=== PATIENT | male | born 1995 | race Hispanic/Latino ===

== ENCOUNTER 2018-01-10 05:47 | Day surgery (SDC) | payer MEDICAID ==
[~2018-01-10] VITALS: Ht 162.6 cm; Wt 97.5 kg
[2018-01-10] VITALS (8 sets, daily range): BP systolic 109–120; BP diastolic 48–69
[~2018-01-10 05:47] MED LIST: SODIUM CHLORIDE 0.9% 1000ML 1,000 ML IV ONE
[2018-01-10] MEDS ORDERED: HYDR-3830 PO (06:39)
[2018-01-10] MEDS ORDERED: LIDOCAINE HCL-MPF 2% 5ML VIAL ONE (07:04)
[2018-01-10] MEDS ORDERED: SUCCINYLCHOLINE CHLORIDE 20 MG/ML 10 ML VIAL ONE (07:13)
== END 2018-01-10 07:54 | disposition home or self-care (01) ==
LOC: ENDO 05:47 → DAH 05:47 → ENDO 07:54
PROVIDERS: ATTEND Internal Medicine Gastroenterology
DX: K21.0 Gastro-esophageal reflux disease with esophagitis (principal); K29.00 Acute gastritis without bleeding; K44.9 Diaphragmatic hernia without obstruction or gangrene; Z68.37 Body mass index [BMI] 37.0-37.9, adult; F41.9 Anxiety disorder, unspecified; Z79.899 Other long term (current) drug therapy
CPT/HCPCS: 43239; 88305; 88312; 88342; A4606; J0330; J3490; J7030

== ENCOUNTER 2018-10-07 11:24 | Emergency (ER) | payer MEDICAID ==
[~2018-10-07 11:24] MED LIST changes: +HYDR-3830 PO; -SODIUM CHLORIDE 0.9% 1000ML 1,000 ML IV ONE
== END 2018-10-07 12:26 | disposition home or self-care (01) ==
LOC: EDH 11:24
DX: S63.591A Other specified sprain of right wrist, initial encounter (principal); W22.8XXA Striking against or struck by other objects, initial encounter; Y93.89 Activity, other specified; Y92.098 Other place in other non-institutional residence as the place of occurrence of the external cause; Y99.8 Other external cause status
CPT/HCPCS: 73110

== ENCOUNTER 2019-02-23 08:06 | Day surgery (SDC) | payer MEDICAID ==
[~2019-02-23] VITALS: Ht 160 cm; Wt 93.0 kg
[~2019-02-23 08:06] MED LIST changes: +CLONAZEPAM; +ESOM40CA54 PO; -HYDR-3830 PO; +SERT50TA12 PO; +SODIUM CHLORIDE 0.9% 1000ML 1,000 ML IV ONE
[2019-02-23 09:00] VITALS: BP 119/58
[2019-02-23 10:51] VITALS: BP 121/60
[2019-02-23 10:56] VITALS: BP 122/60
[2019-02-23 11:01] VITALS: BP 128/61
[2019-02-23 11:06] VITALS: BP 126/61
--- NOTE | 2019-02-23 11:15 | NUR ---
dc pt dc home via wc, no distress noted. denied any pain or discomforts. accompanied by spouse and mom. dc intructions reinforced
== END 2019-02-23 11:15 | disposition home or self-care (01) ==
LOC: DAH 08:06 → ENDO 08:06
PROVIDERS: ATTEND Internal Medicine Gastroenterology
DX: K29.50 Unspecified chronic gastritis without bleeding (principal); K22.8 Other specified diseases of esophagus; K31.89 Other diseases of stomach and duodenum; K21.9 Gastro-esophageal reflux disease without esophagitis; K76.0 Fatty (change of) liver, not elsewhere classified; F41.9 Anxiety disorder, unspecified; R94.5 Abnormal results of liver function studies; K44.9 Diaphragmatic hernia without obstruction or gangrene; Z79.899 Other long term (current) drug therapy
CPT/HCPCS: 43239; 88305; A4606; J7030

== ENCOUNTER → 2019-03-15 | Outpatient (CLI) | payer MEDICAID ==
[~2019-03-15] MED LIST changes: -SODIUM CHLORIDE 0.9% 1000ML 1,000 ML IV ONE
== END | disposition home or self-care (01) ==
LOC: RAH 09:45
PROVIDERS: ATTEND Internal Medicine Gastroenterology
DX: R93.2 Abnormal findings on diagnostic imaging of liver and biliary tract (principal); R10.11 Right upper quadrant pain
CPT/HCPCS: 78227; A9537

== ENCOUNTER 2019-05-19 16:54 | Emergency (ER) | payer MEDICAID ==
[2019-05-19] MEDS ORDERED: IBUPROFEN 600 MG TABLET ONE (17:14)
== END 2019-05-19 17:24 | disposition home or self-care (01) ==
LOC: EDH 16:54
DX: S63.91XA Sprain of unspecified part of right wrist and hand, initial encounter (principal); W22.8XXA Striking against or struck by other objects, initial encounter; Y93.89 Activity, other specified; Y92.098 Other place in other non-institutional residence as the place of occurrence of the external cause; Y99.8 Other external cause status
CPT/HCPCS: 73130

== ENCOUNTER 2019-05-31 06:19 | Day surgery (SDC) | payer MEDICAID ==
[2019-05-29 10:21] VITALS: BP 121/62
[2019-05-29 10:28] LABS: BASOPHILS % (AUTO) 0.5 % (0.0-5.0); EOSINOPHILS % (AUTO) 0.6 % (0.0-8.0); LYMPHOCYTES % (AUTO) 24.1 % (21.0-51.0); MEAN CORPUSCULAR HEMOGLOBIN 30.1 pg (27.0-33.0); MEAN CORPUSCULAR HGB CONC 34.1 g/dL (32.0-36.0); MEAN CORPUSCULAR VOLUME 88.4 fL (80-100); MONOCYTES % (AUTO) 9.2 % (3.0-13.0); PLATELET COUNT (AUTO) 274 K/uL (130-400); RED BLOOD CELL COUNT(AUTO) 4.98 MIL/uL (4.50-6.20); RED CELL DISTRIBUTION WIDTH 12.6 % (11.0-15.5); WHITE BLOOD COUNT (AUTO) 8.8 K/uL (4.8-10.8)
[2019-05-29 10:42] LABS: ALBUMIN 3.9 g/dL (3.5-5.0); BILIRUBIN,DIRECT 0.1 mg/dL (0.0-0.3); BILIRUBIN,TOTAL 0.4 mg/dL (0.2-1.0); TOTAL PROTEIN, SERUM 8.1 g/dL (6.0-8.3)
[~2019-05-31] VITALS: Ht 165.1 cm; Wt 98.6 kg
[2019-05-31] VITALS (15 sets, daily range): BP systolic 109–157; BP diastolic 60–76
[2019-05-31] MEDS ORDERED: CLON0.5T4 PO (07:15)
[2019-05-31] MEDS: LACTATED RINGERS 1000ML 1,000 ML IV SCH ×2 (07:18→08:01)
[2019-05-31] MEDS ORDERED: LIDOCAINE PF 2% 5ML ABBOJECT ONE (08:27)
[2019-05-31] MEDS ORDERED: MIDAZOLAM HCL 1 MG/ML 2ML VIAL ONE (08:28)
[2019-05-31] MEDS ORDERED: PROPOFOL 10 MG/ML 20ML VIAL IV ONE ×2 (08:28→09:30)
[2019-05-31] MEDS ORDERED: ROCURONIUM 10MG/1ML SYR 10 MG/ML ML ONE (08:28)
[2019-05-31] MEDS ORDERED: ONDANSETRON HCL 4 MG/2 ML VIAL ONE ×2 (08:28→10:44)
[2019-05-31] MEDS ORDERED: FENTANYL CITRATE PF 50 MCG/1 ML 2ML VIAL ONE ×3 (08:29→10:30)
[2019-05-31] MEDS ORDERED: HEPARIN SODIUM 1000UNIT/ML 10ML VIAL ONE (08:52)
[2019-05-31] MEDS ORDERED: EPHEDRINE SULFATE 50 MG/ML AMPULE ONE (09:21)
[2019-05-31] MEDS ORDERED: GLYCOPYRROLATE 1 MG/5 ML SYRINGE ONE (09:46)
[2019-05-31] MEDS ORDERED: NEOSTIGMINE 5MG/5ML SYR IV ONE (09:47)
[2019-05-31] MEDS ORDERED: MEPERIDINE-PF 25 MG/ML SYG ONE (10:18)
[2019-05-31] MEDS ORDERED: KETOROLAC TROMETHAMINE 30MG/ML ONE (10:18)
[2019-05-31] MEDS ORDERED: RACEPINEPHRINE HCL 2.25% 0.5 ML NEB SOLN ONE (10:24)
[2019-05-31] MEDS ORDERED: METOCLOPRAMIDE 10 MG/2 ML VIAL ONE (10:44)
== END 2019-05-31 12:12 | disposition home or self-care (01) ==
LOC: DAH 06:19
PROVIDERS: ATTEND Surgery
DX: K82.8 Other specified diseases of gallbladder (principal); K81.1 Chronic cholecystitis; F41.9 Anxiety disorder, unspecified; K21.9 Gastro-esophageal reflux disease without esophagitis; Z87.891 Personal history of nicotine dependence; Z79.899 Other long term (current) drug therapy
CPT/HCPCS: 36415; 47562; 80076; 85025; 88304; 94640; A4215; A4221; A4222; A4223; A4450; A4663; A6260; C1769 ×4; J1644; J1885; J2001; J2175; J2250; J2405 ×2; J2704 ×2; J2710; J2765; J3010 ×3; J3490 ×2; J7030; J7120 ×2

== ENCOUNTER 2021-11-09 03:19 | Emergency (ER) | payer MEDICAID ==
[~2021-11-09] VITALS: Ht 160 cm; Wt 89.8 kg
[~2021-11-09 03:19] MED LIST changes: +CLON0.5T4 PO; -ESOM40CA54 PO; +SERT-439 PO; -SERT50TA12 PO
[2021-11-09 03:49] LABS: BASOPHILS % (AUTO) 0.5 % (0.0-5.0); EOSINOPHILS % (AUTO) 1.2 % (0.0-8.0); HEMATOCRIT 43.5 % (42-54); LYMPHOCYTES % (AUTO) 24.5 % (21.0-51.0); MEAN CORPUSCULAR HEMOGLOBIN 30.6 pg (27.0-33.0); MEAN CORPUSCULAR HGB CONC 35.6 g/dL (32.0-36.0); MONOCYTES % (AUTO) 7.2 % (3.0-13.0); NEUTROPHILS % (AUTO) 66.2 % (40.0-77.0); PLATELET COUNT (AUTO) 255 K/uL (130-400); RED BLOOD CELL COUNT(AUTO) 5.06 MIL/uL (4.50-6.20); RED CELL DISTRIBUTION WIDTH 12.4 % (11.0-15.5); WHITE BLOOD COUNT (AUTO) 12.1 K/uL (4.8-10.8)
[2021-11-09 04:01] LABS: CREATININE 0.9 mg/dL (0.5-1.5); POTASSIUM 3.8 mmol/L (3.5-5.1)
[2021-11-09 04:05] LABS: BILIRUBIN,TOTAL 0.4 mg/dL (0.2-1.0); TOTAL PROTEIN, SERUM 7.5 g/dL (6.0-8.3)
[2021-11-09] MEDS ORDERED: KETOROLAC 15MG/ML VIAL (15MG/ML) IV ONE (05:00)
[2021-11-09] MEDS ORDERED: IBUP-2070 PO (05:01)
[2021-11-09 05:03] VITALS: BP 115/80
== END 2021-11-09 05:19 | disposition home or self-care (01) ==
LOC: EDH 03:19
DX: R07.89 Other chest pain (principal); R09.1 Pleurisy; F14.90 Cocaine use, unspecified, uncomplicated; Z90.49 Acquired absence of other specified parts of digestive tract
CPT/HCPCS: 36415; 84484; 85025; 80053; 93005; 96374; 99284; J1885

== ENCOUNTER 2022-03-18 21:27 | Emergency (ER) | payer MEDICAID ==
[~2022-03-18] VITALS: Ht 162.6 cm; Wt 95.3 kg
[~2022-03-18 21:27] MED LIST changes: +IBUP-2070 PO
[2022-03-18 21:56] VITALS: BP 131/82
[2022-03-18] MEDS ORDERED: ACET-2079 PO (22:38)
[2022-03-18] MEDS ORDERED: IBUP-2070 PO (22:38)
[2022-03-18] MEDS ORDERED: IBUPROFEN 600 MG TABLET PO ONE (23:00)
[2022-03-18] MEDS ORDERED: HYDROCODONE/ACETAMINOPHEN 10/325 MG TAB PO ONE (23:00)
== END 2022-03-18 23:07 | disposition home or self-care (01) ==
LOC: EDH 21:27
DX: S93.402A Sprain of unspecified ligament of left ankle, initial encounter (principal); Z79.1 Long term (current) use of non-steroidal anti-inflammatories (NSAID); Z90.49 Acquired absence of other specified parts of digestive tract; X58.XXXA Exposure to other specified factors, initial encounter; Y93.89 Activity, other specified; Y92.89 Other specified places as the place of occurrence of the external cause; Y99.8 Other external cause status
CPT/HCPCS: 73610